=== PATIENT | male | born 1985 | race Hispanic/Latino ===

== ENCOUNTER 2024-02-01 01:36 | Emergency (ER) | payer SELFPAY ==
[~2024-02-01] VITALS: Ht 165.1 cm; Wt 89.0 kg
[~2024-02-01 01:36] MED LIST: FLUOCINONIDE0.051 EX; NO
[2024-02-01 02:35] VITALS: BP 128/71
== END 2024-02-01 02:35 | disposition home or self-care (01) | DRG 156 ==
LOC: ED 01:36
PROC: 09C3XZZ Extirpation of Matter from Right External Auditory Canal, External Approach (ICD-10-PCS; principal; 2024-02-01)
DX: T16.1XXA Foreign body in right ear, initial encounter (principal); W44.F4XA Insect entering into or through a natural orifice, initial encounter